=== PATIENT | male | born 1950 | race American Indian/Alaskan Native ===

== ENCOUNTER 2018-01-05 10:46 | Emergency (ER) | payer MEDICARE, OTHER ==
[2018-01-05 10:47] VITALS: BMI 31.1
[2018-01-05 11:06] VITALS: RESP 18
[2018-01-05 11:39] LABS: BASO # 0.1 K/uL (0.0-0.2); BASO % 1.3 % (0.0-2.0); EOS # 0.1 K/uL (0.0-0.7); EOS % 1.2 % (0.0-4.0); HEMOGLOBIN 14.5 g/dL (12.0-18.0); LYMPH # 1.8 K/uL (1.0-4.3); LYMPH % 19.5 % (20.0-40.0); MEAN CELL VOLUME 86.7 fL (80.0-94.0); MEAN CORPUSCULAR HEMOGLOBIN 28.8 pg (27.0-31.0); MEAN CORPUSCULAR HGB CONC 33.2 g/dL (33.0-37.0); MEAN PLATELET VOLUME 7.8 fL (7.2-11.7); MONO # 0.6 K/uL (0.0-0.8); NEUT # 6.4 K/uL (1.8-7.0); RBC 5.04 Mil/uL (4.40-5.90); RED CELL DISTRIBUTION WIDTH 14.8 % (11.5-14.5); WHITE BLOOD COUNT 9.1 K/uL (4.8-10.8)
[2018-01-05 11:56] LABS: ALB/GLOB RATIO 1.2 (1.0-2.1); ALBUMIN 3.8 g/dL (3.5-5.0); ALT/SGPT 30 U/L (21-72); AST/SGOT 28 U/L (17-59); BLOOD UREA NITROGEN 17 mg/dL (9-20); CALCIUM 9.3 mg/dl (8.6-10.4); GFR AFRICAN-AMERICAN > 60; GFR NON-AFRICAN AMERICAN 55
[2018-01-05 12:07] LABS: CK-MB 0.61 ng/mL (0.0-3.38)
[2018-01-05 12:54] LABS: SQUAMOUS EPITHIAL < 1 /hpf (0-5); URINE BILIRUBIN NEGATIVE (NEGATIVE); URINE BLOOD NEGATIVE (NEGATIVE); URINE CLARITY Clear (Clear); URINE COLOR Yellow (YELLOW); URINE GLUCOSE (UA) NORMAL (Normal); URINE LEUKOCYTE ESTERASE NEG Leu/uL (Negative); URINE PROTEIN NEGATIVE (NEGATIVE); URINE UROBILINOGEN NORMAL mg/dL (0.2-1.0)
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
[2018-01-05 13:11] VITALS: BP 136/76; PULSE 69; TEMP 98.4
[2018-01-10 20:21] VITALS: O2SAT 99
== END 2018-01-05 13:12 | disposition home or self-care (01) ==
LOC: C.ER 10:46
DX: D32.0 Benign neoplasm of cerebral meninges (principal)

== ENCOUNTER 2018-02-19 16:02 | Observation (INO) | payer MEDICARE, OTHER ==
[2018-02-19 16:02] VITALS: BMI 31.1
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
[2018-02-19 16:57] LABS: BASO # 0.1 K/uL (0.0-0.2); BASO % 0.8 % (0.0-2.0); EOS # 0.2 K/uL (0.0-0.7); EOS % 1.8 % (0.0-4.0); HEMOGLOBIN 15.6 g/dL (12.0-18.0); LYMPH # 2.3 K/uL (1.0-4.3); LYMPH % 21.2 % (20.0-40.0); MEAN CELL VOLUME 87.6 fL (80.0-94.0); MEAN CORPUSCULAR HEMOGLOBIN 28.3 pg (27.0-31.0); MEAN CORPUSCULAR HGB CONC 32.4 g/dL (33.0-37.0); MEAN PLATELET VOLUME 8.3 fL (7.2-11.7); MONO # 0.9 K/uL (0.0-0.8); MONO % 8.1 % (0.0-10.0); NEUT # 7.4 K/uL (1.8-7.0); NEUT % 68.1 % (50.0-75.0); NRBC % 0.1 % (0.0-2.0); RBC 5.51 Mil/uL (4.40-5.90); RED CELL DISTRIBUTION WIDTH 14.8 % (11.5-14.5); WHITE BLOOD COUNT 10.9 K/uL (4.8-10.8)
[2018-02-19 17:04] LABS: INR 1.1; PROTHROMBIN TIME 12.1 SECONDS (9.7-12.2)
[2018-02-19 17:12] LABS: ALB/GLOB RATIO 1.2 (1.0-2.1); ALBUMIN 4.2 g/dL (3.5-5.0); ALT/SGPT 23 U/L (21-72); AST/SGOT 32 U/L (17-59); BLOOD UREA NITROGEN 28 mg/dL (9-20); CALCIUM 9.3 mg/dl (8.6-10.4); GFR NON-AFRICAN AMERICAN 50
--- NOTE | 2018-02-19 17:41 | RAD ---
Date of service: 02/19/2018 HISTORY: near syncope COMPARISON: Greater than left comparison made with prior chest radiograph 07/10/2014 FINDINGS: LUNGS: Persistent elevation of the right hemidiaphragm with probable linear chronic atelectasis and or scarring changes right lung base. Suspect minor left basilar atelectasis. PLEURA: No significant pleural effusion identified, no pneumothorax apparent. CARDIOVASCULAR: Normal. OSSEOUS STRUCTURES: No significant abnormalities. VISUALIZED UPPER ABDOMEN: Normal. OTHER FINDINGS: None. IMPRESSION: Persistent elevation of the right hemidiaphragm with probable linear chronic atelectasis and or scarring changes right lung base. Suspect minor left basilar atelectasis.
--- NOTE | 2018-02-19 17:56 | CT ---
Date of service: 02/19/2018 PROCEDURE: CT HEAD WITHOUT CONTRAST. HISTORY: Near syncope. COMPARISON: None available. TECHNIQUE: Axial computed tomography images were obtained through the head/brain without intravenous contrast. . Radiation dose: Total exam DLP = 916.76 mGy-cm. This CT exam was performed using one or more of the following dose reduction techniques: Automated exposure control, adjustment of the mA and/or kV according to patient size, and/or use of iterative reconstruction technique. FINDINGS: HEMORRHAGE: No acute parenchymal, subarachnoid or extra-axial the the hemorrhage. BRAIN: Mild chronic periventricular white matter ischemic changes seen extending peripherally into the deep white matter both cerebral hemispheres in addition, there are patchy subcortical white matter ischemic changes scattered about both cerebral hemispheres. There are a few scattered chronic bilateral basal nuclei lacunar type infarcts. Moderate generalized volume loss VENTRICLES: No obstructive hydrocephalus. CALVARIUM: Calvarium intact. PARANASAL SINUSES: Unremarkable as visualized. No significant inflammatory changes. MASTOID AIR CELLS: Unremarkable as visualized. No inflammatory changes. OTHER FINDINGS: None. IMPRESSION: No acute intracranial hemorrhage. Mild chronic periventricular white matter ischemic changes seen extending peripherally into the deep white matter both cerebral hemispheres in addition, there are patchy subcortical white matter ischemic changes scattered about both cerebral hemispheres. There are a few scattered chronic bilateral basal nuclei lacunar type infarcts. Moderate generalized volume loss.
[2018-02-19 18:16] LABS: SQUAMOUS EPITHIAL 1 /hpf (0-5); URINE BACTERIA RARE (<OCC); URINE BILIRUBIN NEGATIVE (NEGATIVE); URINE BLOOD NEGATIVE (NEGATIVE); URINE CLARITY Clear (Clear); URINE COLOR Yellow (YELLOW); URINE GLUCOSE (UA) NORMAL (Normal); URINE LEUKOCYTE ESTERASE NEG Leu/uL (Negative); URINE PROTEIN NEGATIVE (NEGATIVE)
[2018-02-19 22:29] VITALS: PULSE 70
[2018-02-20 02:31] LABS: CK-MB < 0.22 ng/mL (0.0-3.38)
[2018-02-20 04:06] VITALS: BP 126/72; RESP 18; TEMP 98
[2018-02-20] MEDS ORDERED: INSULIN LISPRO 6 UNIT SQ SCH (10:00)
[2018-02-20] MEDS ORDERED: INSULIN GLARGINE HUM REC ANLOG 14 UNIT SQ SCH (10:00)
[2018-02-20] MEDS ORDERED: Home Med 1 UNIT (Valsartan [Diovan] 160 MG) PO SCH (10:00)
[2018-02-20 14:26] VITALS: O2SAT 95
--- NOTE | 2018-02-21 02:01 | CARD ---
APPROVED REPORT Date of service: 02/19/2018 EKG Measurement Heart [id number] <Conclusion> Normal sinus rhythm Nonspecific T wave abnormality Abnormal ECG
--- NOTE | 2018-02-21 07:11 | HP ---
Copied To: Umang Irizarry MD Attending MD: Umang Irizarry MD SUBJECTIVE: The patient is a 67-year-old male. Denies complaints of dizziness and syncope. The patient came to the ER and initially presented with vertigo in the past and diabetes. The patient is awake, alert, and oriented. PHYSICAL EXAMINATION: VITAL SIGNS: Temperature 98, pulse 90. HEENT: Within normal limits. NECK: Supple. CHEST: Symmetrical. HEART: Regular. ABDOMEN: Soft. EXTREMITIES: No edema. IMPRESSION AND PLAN: The patient suffers from vertigo. The patient get bedrest, supportive care. Umang Irizarry MD
== END 2018-02-20 05:32 | disposition left against medical advice (07) ==
LOC: C.ER 16:02 → C.9E 18:18
PROVIDERS: ADMIT Internal Medicine Pulmonary Disease; ATTEND Internal Medicine Pulmonary Disease
DX: R55 Syncope and collapse (principal); I10 Essential (primary) hypertension; I25.10 Atherosclerotic heart disease of native coronary artery without angina pectoris; N40.0 Benign prostatic hyperplasia without lower urinary tract symptoms; Z85.46 Personal history of malignant neoplasm of prostate; E11.9 Type 2 diabetes mellitus without complications
CPT/HCPCS: 36415; 70450; 71045; 80053; 81001; 82948; 84443; 84484; 85025; 85610; 85730; G0378

== ENCOUNTER 2018-07-08 10:49 | Emergency (ER) | payer MEDICARE, OTHER ==
[2018-07-08 10:49] VITALS: BMI 31.1
[2018-07-08] MEDS ORDERED: Sodium Chloride 0.9% 1,000 ML IV ONE (11:56)
[2018-07-08 11:59] LABS: BASO # 0.1 K/uL (0.0-0.2); BASO % 1.2 % (0.0-2.0); EOS # 0.1 K/uL (0.0-0.7); EOS % 1.1 % (0.0-4.0); HEMOGLOBIN 16.1 g/dL (12.0-18.0); LYMPH % 21.4 % (20.0-40.0); MEAN PLATELET VOLUME 8.2 fL (7.2-11.7); MONO # 0.8 K/uL (0.0-0.8); MONO % 8.3 % (0.0-10.0); NEUT # 6.4 K/uL (1.8-7.0); RBC 5.36 Mil/uL (4.40-5.90); RED CELL DISTRIBUTION WIDTH 13.6 % (11.5-14.5); WHITE BLOOD COUNT 9.5 K/uL (4.8-10.8)
[2018-07-08 12:00] LABS: MEAN CELL VOLUME 91.1 fL (80.0-94.0)
[2018-07-08] MEDS ORDERED: Iohexol 240 (50 ml) PO ONE (12:06)
[2018-07-08] MEDS ORDERED: Iohexol 240 (50 ml) ONE (12:16)
[2018-07-08] MEDS ORDERED: Sodium Chloride 0.9% 1,000 ML ONE (12:16)
[2018-07-08 12:23] LABS: ALB/GLOB RATIO 1.4 (1.0-2.1); ALBUMIN 4.7 g/dL (3.5-5.0); ALT/SGPT 22 U/L (21-72); AST/SGOT 26 U/L (17-59); BLOOD UREA NITROGEN 34 mg/dL (9-20); CALCIUM 9.8 mg/dl (8.6-10.4); GFR NON-AFRICAN AMERICAN 35; LIPASE 134 U/L (23-300)
[2018-07-08 12:33] LABS: CK-MB 0.38 ng/mL (0.0-3.38)
--- NOTE | 2018-07-08 13:03 | RAD ---
Chest x-ray single frontal view History: Nausea. Weakness. Comparison: 04/29/2018 Findings: Mild venous congestion. Right hilar prominence. Mild patchy increased markings at the right lung base. Heart size within normal limits. Degenerative changes in the spine. Impression: Mild venous congestion. Right hilar prominence. Mild patchy increased markings at the right lung base.
[2018-07-08] MEDS ORDERED: Iodixanol 320 mg/ml 150 ml Bottle IV ONE (13:52)
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
[2018-07-08 15:15] LABS: SQUAMOUS EPITHIAL < 1 /hpf (0-5); URINE BACTERIA RARE (<OCC); URINE BILIRUBIN NEGATIVE (NEGATIVE); URINE BLOOD NEGATIVE (NEGATIVE); URINE CLARITY Clear (Clear); URINE COLOR Straw (YELLOW); URINE GLUCOSE (UA) NORMAL (Normal); URINE LEUKOCYTE ESTERASE NEG Leu/uL (Negative); URINE PROTEIN NEGATIVE (NEGATIVE); URINE UROBILINOGEN NORMAL mg/dL (0.2-1.0)
--- NOTE | 2018-07-08 15:23 | CT ---
PROCEDURE: CT Abdomen and Pelvis with oral and IV contrast. HISTORY: weakness, nausea, unexplained weight loss COMPARISON: None available TECHNIQUE: Contiguous axial images of the abdomen and pelvis. Oral and IV contrast was administered. Coronal and Sagittal reformats generated and reviewed. Contrast dose: 100 mL Visipaque IV Radiation dose: Total exam DLP = 1126.1 mGy-cm. This CT exam was performed using one or more of the following dose reduction techniques: Automated exposure control, adjustment of the mA and/or kV according to patient size, and/or use of iterative reconstruction technique. FINDINGS: Examination limited by patient motion. LOWER THORAX: 3 mm right middle lobe calcified granuloma. Mild basilar atelectasis. No visible effusion or pneumothorax. Small hiatal hernia/distal esophageal wall thickening. LIVER: Unremarkable. GALLBLADDER AND BILE DUCTS: Unremarkable. PANCREAS: Unremarkable. SPLEEN: Unremarkable. ADRENALS: Bilateral adrenal gland hypertrophy. 7 mm and 6 mm right adrenal gland nodules. KIDNEYS AND URETERS: The kidneys enhance symmetrically. No hydronephrosis or obstructing renal calculus. 9 mm exophytic hypodense lesion, right kidney statistically likely cyst. Indeterminate 11 mm heterogeneous hypodense lesion at the left renal cortex. Bilateral parapelvic cysts. BLADDER: The urinary bladder appears unremarkable. REPRODUCTIVE: Prostate radiation seeds. APPENDIX: The appendix appears within normal limits of caliber. No secondary signs of acute appendicitis. BOWEL: The stomach is nondistended. The bowel loops appear within normal limits of caliber without evidence of intestinal obstruction. PERITONEUM: No significant free fluid. No definite free air. LYMPH NODES: No bulky lymphadenopathy identified. VASCULATURE: No aortic aneurysm. Atherosclerotic calcifications of the aorta. BONES: Degenerative changes of the spine and pelvis. OTHER FINDINGS: 3.2 x 1.4 cm low-density fluid, left pelvis inferior to the sigmoid colon (coronal image 41). IMPRESSION: Examination markedly limited by patient motion. Prostate radiation seeds. Indeterminate 11 mm heterogeneous hypodense lesion at the left renal cortex. Too small to characterize right renal hypodensity, statistically likely cyst. Bilateral parapelvic cysts. Bilateral adrenal gland hypertrophy. 7 mm and 6 mm right adrenal gland nodules. Small focal low-density fluid spanning approximately 3.2 x 1.4 cm in the left anterior pelvis inferior to the sigmoid colon. Additional incidental findings as above.
[2018-07-08 16:43] VITALS: BP 156/83; PULSE 75; RESP 18; TEMP 97.9; O2SAT 100
== END 2018-07-08 16:43 | disposition home or self-care (01) ==
LOC: C.ER 10:49
DX: E86.0 Dehydration (principal); N28.1 Cyst of kidney, acquired; E27.8 Other specified disorders of adrenal gland; R42 Dizziness and giddiness; E11.9 Type 2 diabetes mellitus without complications; E78.00 Pure hypercholesterolemia, unspecified; I10 Essential (primary) hypertension; I25.10 Atherosclerotic heart disease of native coronary artery without angina pectoris; N40.0 Benign prostatic hyperplasia without lower urinary tract symptoms
CPT/HCPCS: 71045; 74177; 80053; 81001; 82550; 82553; 83690; 84484; 85025; 93005; 96360; 99285; J7030; Q9966; Q9967

== ENCOUNTER 2018-07-24 08:38 | Day surgery (SDC) | payer MEDICARE, OTHER ==
[2018-07-23 14:04] VITALS: BMI 25.5
[2018-07-24] MEDS ORDERED: Lactated Ringer's 1,000 ML IV ONE (12:15)
--- NOTE | 2018-07-24 12:16 | CP.SDSHP ---
Same Day Surgery H & P - History Proposed Procedure: EGD Pre-Op Diagnosis: SEE NOTES - Previous Medical/Surgical History Cardiac: Hypertension Endocrine/Metabolic: Diabetes Misc: Other Pain: 4.Moderate Pain - Allergies Allergies: Allergies No Known Allergies Allergy (Verified 07/24/18 11:13) - Physical Exam General Appearance: N Vital Signs: Vital Signs 07/24/18 11:32 Temperature 99.1 F Pulse Rate 65 Respiratory 18 Rate Blood Pressure 134/78 O2 Sat by Pulse 98 Oximetry Mental Status: Alert & Oriented x3 Neuro: WNL Heart: Other Lungs: WNL GI: Other - {Optional Preform as Required} Breast: WNL Integument: WNL : WNL Ortho: Other ENT: WNL - Impression Pt. Evaluated Today:Candidate for Anesthesia & Procedure: Yes - Date & Time Time: 12:16 Short Stay Discharge - Short Stay Discharge Admitting Diagnosis/Reason for Visit: ABNORMAL WEIGHT LOSS Disposition: HOME/ ROUTINE
[2018-07-24] MEDS ORDERED: Propofol 10 mg/ml Inj (20 ML) ONE (12:19)
[2018-07-24] MEDS ORDERED: Midazolam 2 MG/2 ML VIAL ONE (12:19)
[2018-07-24] MEDS ORDERED: Lactated Ringer's 500 ML IV SCH (12:30)
[2018-07-24] MEDS ORDERED: Lidocaine Hydrochloride 5 ML INJ ONE (12:31)
[2018-07-24] MEDS ORDERED: Belladonna-Phenobarbital PO STA (12:48)
[2018-07-24 12:58] VITALS: TEMP 98.9
[2018-07-24 13:54] VITALS: BP 129/72; PULSE 61; RESP 18; O2SAT 99
== END 2018-07-24 14:51 | disposition home or self-care (01) ==
LOC: C.ENDO 08:38
PROVIDERS: ATTEND Specialist
DX: K29.50 Unspecified chronic gastritis without bleeding (principal); B96.81 Helicobacter pylori [H. pylori] as the cause of diseases classified elsewhere; E11.9 Type 2 diabetes mellitus without complications; I10 Essential (primary) hypertension; Z92.3 Personal history of irradiation; Z98.890 Other specified postprocedural states; Z79.899 Other long term (current) drug therapy
CPT/HCPCS: 43239; 82948; 88305; 88313; 88342; J2250; J2704; J7120

== ENCOUNTER 2018-08-05 08:14 | Day surgery (SDC) | payer MEDICARE, OTHER ==
[2018-07-23 14:04] VITALS: BMI 25.5
[2018-08-05] MEDS ORDERED: Lactated Ringer's 500 ML IV ONE ×2 (11:14)
--- NOTE | 2018-08-05 11:14 | CP.SDSHP ---
Same Day Surgery H & P - History Proposed Procedure: COLONSCOPY Pre-Op Diagnosis: SEE NOTES - Previous Medical/Surgical History Cardiac: Hypertension Endocrine/Metabolic: Diabetes Misc: Other Pain: 4.Moderate Pain - Allergies Allergies: Allergies No Known Allergies Allergy (Verified 08/05/18 10:18) - Physical Exam General Appearance: N Vital Signs: Vital Signs 08/05/18 10:00 Temperature 98.7 F Pulse Rate 80 Respiratory 20 Rate Blood Pressure 120/77 O2 Sat by Pulse 98 Oximetry Mental Status: Alert & Oriented x3 Neuro: WNL Heart: Other Lungs: WNL GI: Other - {Optional Preform as Required} Breast: WNL Abdomen: Other Rectal: Other Integument: WNL : WNL Ortho: Other ENT: WNL - Impression Pt. Evaluated Today:Candidate for Anesthesia & Procedure: Yes - Date & Time Time: 11:14 Short Stay Discharge - Short Stay Discharge Admitting Diagnosis/Reason for Visit: BODY WEIGHT LOSS Disposition: HOME/ ROUTINE
[2018-08-05] MEDS ORDERED: Belladonna-Phenobarbital PO STA (11:15)
[2018-08-05] MEDS ORDERED: Propofol 10 mg/ml Inj (20 ML) ONE (11:17)
[2018-08-05] MEDS ORDERED: Lidocaine Hydrochloride 5 ML INJ ONE (11:17)
[2018-08-05 11:19] VITALS: O2SAT 100
[2018-08-05 11:47] VITALS: TEMP 99.1
[2018-08-05 13:37] VITALS: BP 131/68; PULSE 69; RESP 17
== END 2018-08-05 12:30 | disposition home or self-care (01) ==
LOC: C.ENDO 08:14
PROVIDERS: ATTEND Specialist
DX: R63.4 Abnormal weight loss (principal); K64.8 Other hemorrhoids; K58.9 Irritable bowel syndrome, unspecified
CPT/HCPCS: 45378; J2704; J7120

== ENCOUNTER 2018-09-18 15:37 | Emergency (ER) | payer MEDICARE, OTHER ==
[2018-09-18 15:38] VITALS: BMI 25.5
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
[2018-09-18 16:29] LABS: BASO # 0.1 K/uL (0.0-0.2); EOS # 0.1 K/uL (0.0-0.7); EOS % 0.7 % (0.0-4.0); HEMOGLOBIN 14.4 g/dL (12.0-18.0); LYMPH # 1.8 K/uL (1.0-4.3); LYMPH % 19.5 % (20.0-40.0); MEAN CELL VOLUME 89.5 fL (80.0-94.0); MEAN CORPUSCULAR HEMOGLOBIN 29.3 pg (27.0-31.0); MEAN CORPUSCULAR HGB CONC 32.7 g/dL (33.0-37.0); MEAN PLATELET VOLUME 7.6 fL (7.2-11.7); MONO % 10.7 % (0.0-10.0); NEUT # 6.4 K/uL (1.8-7.0); NEUT % 68.1 % (50.0-75.0); RBC 4.92 Mil/uL (4.40-5.90); WHITE BLOOD COUNT 9.4 K/uL (4.8-10.8)
[2018-09-18 16:37] LABS: INR 1.2; PROTHROMBIN TIME 13.4 SECONDS (9.7-12.2)
[2018-09-18 16:42] LABS: ALB/GLOB RATIO 1.5 (1.0-2.1); ALBUMIN 4.3 g/dL (3.5-5.0); ALT/SGPT 29 U/L (21-72); AST/SGOT 32 U/L (17-59); BLOOD UREA NITROGEN 23 mg/dL (9-20); CALCIUM 9.9 mg/dl (8.6-10.4); GFR NON-AFRICAN AMERICAN 43
[2018-09-18 17:44] LABS: SQUAMOUS EPITHIAL < 1 /hpf (0-5); URINE BACTERIA RARE (<OCC); URINE BILIRUBIN NEGATIVE (NEGATIVE); URINE BLOOD NEGATIVE (NEGATIVE); URINE CLARITY Clear (Clear); URINE COLOR Yellow (YELLOW); URINE GLUCOSE (UA) NORMAL (Normal); URINE LEUKOCYTE ESTERASE NEG Leu/uL (Negative); URINE PROTEIN NEGATIVE (NEGATIVE); URINE UROBILINOGEN NORMAL mg/dL (0.2-1.0)
--- NOTE | 2018-09-18 17:46 | CT ---
Date of service: 09/18/2018 PROCEDURE: CT HEAD WITHOUT CONTRAST. HISTORY: Headache/lightheaded/dizzy COMPARISON: 02/19/2018. TECHNIQUE: Axial computed tomography images were obtained through the head/brain without intravenous contrast. Radiation dose: Total exam DLP = 1106.05 mGy-cm. This CT exam was performed using one or more of the following dose reduction techniques: Automated exposure control, adjustment of the mA and/or kV according to patient size, and/or use of iterative reconstruction technique. FINDINGS: HEMORRHAGE: No intracranial hemorrhage. BRAIN: There are mild chronic microangiopathic changes. There is redemonstration of a 2.5 x 1.0 x 4.0 cm left parasagittal frontal convexity meningioma with mild mass effect on the superior frontal lobe without vasogenic edema or midline shift. There is no abnormal extra-axial fluid collection. There is no territorial infarction. The midline sagittal structures are normal. VENTRICLES: The ventricles are normal in size, onfiguration. CALVARIUM: There are erosive changes and scalloping in the inner table of the left superior frontal calvarium related to known meningioma. There is no calvarial fracture or extracranial soft tissue swelling. PARANASAL SINUSES: Predominantly clear. MASTOID AIR CELLS: Predominantly clear. OTHER FINDINGS: None. IMPRESSION: No acute intracranial abnormality. Mild chronic microangiopathic changes and mild age-related global parenchymal volume loss. Little interval change in known left parasagittal frontal convexity meningioma with mild mass effect on the superior frontal lobe without vasogenic edema or midline shift. Redemonstration of scalloping of the inner table of the left frontal calvarium.
[2018-09-18 18:03] VITALS: BP 136/80; PULSE 68; RESP 18; TEMP 98.4
[2018-09-18 18:18] VITALS: O2SAT 99
--- NOTE | 2018-09-21 20:09 | CARD ---
APPROVED REPORT Date of service: 09/18/2018 EKG Measurement Heart [id number] <Conclusion> Normal sinus rhythm Nonspecific T wave abnormality Abnormal ECG
== END 2018-09-18 18:04 | disposition home or self-care (01) ==
LOC: C.ER 15:37
DX: E11.649 Type 2 diabetes mellitus with hypoglycemia without coma (principal); R42 Dizziness and giddiness; R55 Syncope and collapse; R51 Headache
CPT/HCPCS: 70450; 80053; 81001; 82948; 84484; 85025; 85610; 85730; 93005; 96374; 99285; J2405

== ENCOUNTER 2018-09-21 13:59 | Observation (INO) | payer MEDICARE, OTHER ==
[2018-09-21 14:00] VITALS: BMI 25.5
[2018-09-21] MEDS ORDERED: Sodium Chloride 0.9% 500 ML IV STA (14:35)
[2018-09-21 14:53] LABS: BASO # 0.1 K/uL (0.0-0.2); BASO % 1.3 % (0.0-2.0); EOS # 0.1 K/uL (0.0-0.7); EOS % 0.8 % (0.0-4.0); HEMOGLOBIN 14.5 g/dL (12.0-18.0); LYMPH # 1.7 K/uL (1.0-4.3); LYMPH % 18.3 % (20.0-40.0); MEAN CORPUSCULAR HEMOGLOBIN 29.9 pg (27.0-31.0); MEAN CORPUSCULAR HGB CONC 32.6 g/dL (33.0-37.0); MEAN PLATELET VOLUME 8.1 fL (7.2-11.7); MONO # 0.7 K/uL (0.0-0.8); NEUT # 6.6 K/uL (1.8-7.0); NEUT % 71.6 % (50.0-75.0); NRBC % 0.1 % (0.0-2.0); RBC 4.85 Mil/uL (4.40-5.90); RED CELL DISTRIBUTION WIDTH 13.9 % (11.5-14.5); WHITE BLOOD COUNT 9.2 K/uL (4.8-10.8)
[2018-09-21 14:59] LABS: VENOUS BLOOD GAS BASE EXCESS -2.9 mmol/L (0.0-2.0); VENOUS BLOOD GAS PCO2 33 mmHg (40-60); VENOUS BLOOD GAS PO2 49 mm/Hg (30-55); VENOUS BLOOD PH 7.41 (7.32-7.43)
[2018-09-21 15:02] LABS: MEAN CELL VOLUME 91.6 fL (80.0-94.0)
--- NOTE | 2018-09-21 15:04 | RAD ---
Date of service: 09/21/2018 PROCEDURE: CHEST RADIOGRAPH, 1 VIEW HISTORY: Diabetic, hypoglycemia COMPARISON: 07/08/2018 FINDINGS: LUNGS: Clear. PLEURA: No pneumothorax or pleural fluid seen. CARDIOVASCULAR: No aortic atherosclerotic calcification present. Normal. OSSEOUS STRUCTURES: No significant abnormalities. VISUALIZED UPPER ABDOMEN: Normal. OTHER FINDINGS: None. IMPRESSION: No active disease.
[2018-09-21 15:06] LABS: INR 1.2; PROTHROMBIN TIME 13.2 SECONDS (9.7-12.2)
[2018-09-21 15:15] LABS: ALB/GLOB RATIO 1.5 (1.0-2.1); ALBUMIN 4.3 g/dL (3.5-5.0); ALT/SGPT 44 U/L (21-72); AST/SGOT 33 U/L (17-59); BLOOD UREA NITROGEN 26 mg/dL (9-20); CALCIUM 9.6 mg/dl (8.6-10.4); GFR NON-AFRICAN AMERICAN 43
[2018-09-21 15:51] LABS: SQUAMOUS EPITHIAL < 1 /hpf (0-5); URINE BILIRUBIN NEGATIVE (NEGATIVE); URINE BLOOD NEGATIVE (NEGATIVE); URINE CLARITY Clear (Clear); URINE COLOR Yellow (YELLOW); URINE GLUCOSE (UA) NORMAL (Normal); URINE HYALINE CAST 0-2 /lpf (0-2); URINE LEUKOCYTE ESTERASE NEG Leu/uL (Negative); URINE PROTEIN NEGATIVE (NEGATIVE); URINE UROBILINOGEN NORMAL mg/dL (0.2-1.0)
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
[2018-09-22 00:45] VITALS: RESP 20
[2018-09-22 07:44] VITALS: BP 139/80; TEMP 98.1; O2SAT 96
[2018-09-22] MEDS: (Novolog) Insulin Aspart, Recombinant 100 u/ml 10 ml vial SC SCH ×2 (07:48→11:50)
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
--- NOTE | 2018-09-22 09:24 | CARD ---
APPROVED REPORT Date of service: 09/21/2018 EKG Measurement Heart [id number] <Conclusion> Poor data quality, interpretation may be adversely affected Normal sinus rhythm Normal ECG
[2018-09-22 11:31] LABS: BASO # 0.1 K/uL (0.0-0.2); BASO % 1.1 % (0.0-2.0); EOS # 0.1 K/uL (0.0-0.7); EOS % 1.2 % (0.0-4.0); HEMOGLOBIN 14.4 g/dL (12.0-18.0); LYMPH # 1.8 K/uL (1.0-4.3); LYMPH % 24.9 % (20.0-40.0); MEAN CELL VOLUME 91.6 fL (80.0-94.0); MEAN CORPUSCULAR HEMOGLOBIN 30.5 pg (27.0-31.0); MEAN CORPUSCULAR HGB CONC 33.3 g/dL (33.0-37.0); MEAN PLATELET VOLUME 7.4 fL (7.2-11.7); MONO # 0.6 K/uL (0.0-0.8); MONO % 8.9 % (0.0-10.0); NEUT # 4.7 K/uL (1.8-7.0); NEUT % 63.9 % (50.0-75.0); NRBC % 0.1 % (0.0-2.0); RBC 4.73 Mil/uL (4.40-5.90); RED CELL DISTRIBUTION WIDTH 13.9 % (11.5-14.5); WHITE BLOOD COUNT 7.3 K/uL (4.8-10.8)
[2018-09-22 12:04] LABS: ALB/GLOB RATIO 1.5 (1.0-2.1); ALBUMIN 4.1 g/dL (3.5-5.0); ALT/SGPT 55 U/L (21-72); AST/SGOT 38 U/L (17-59); BLOOD UREA NITROGEN 19 mg/dL (9-20); CALCIUM 9.7 mg/dl (8.6-10.4); GFR NON-AFRICAN AMERICAN 55
[2018-09-22 14:44] VITALS: PULSE 67
== END 2018-09-22 15:00 | disposition home or self-care (01) ==
LOC: C.ER 13:59 → C.9E 16:25 → C.6T 20:53
PROVIDERS: ADMIT Internal Medicine Pulmonary Disease; ATTEND Internal Medicine Pulmonary Disease
DX: R55 Syncope and collapse (principal); E11.649 Type 2 diabetes mellitus with hypoglycemia without coma; I25.10 Atherosclerotic heart disease of native coronary artery without angina pectoris; I10 Essential (primary) hypertension; E78.00 Pure hypercholesterolemia, unspecified; N40.0 Benign prostatic hyperplasia without lower urinary tract symptoms
CPT/HCPCS: 36415; 71045; 80053; 81001; 82550; 82553; 82803; 82948; 83036; 83735; 84100; 84484; 85025; 85610; 85730; 87040; 87086; 93005; 99285; G0378; J1644; J7040; J7070

== ENCOUNTER 2018-10-25 04:36 | Emergency (ER) | payer MEDICARE, OTHER ==
[2018-10-25 04:37] VITALS: BMI 25.5
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
[2018-10-25] MEDS ORDERED: Sodium Chloride 0.9% 1,000 ML IV STA (05:47)
[2018-10-25 06:06] LABS: BASO # 0.1 K/uL (0.0-0.2); BASO % 0.8 % (0.0-2.0); EOS # 0.1 K/uL (0.0-0.7); EOS % 1.4 % (0.0-4.0); HEMOGLOBIN 15.3 g/dL (12.0-18.0); LYMPH # 2.1 K/uL (1.0-4.3); LYMPH % 24.1 % (20.0-40.0); MEAN CELL VOLUME 91.8 fL (80.0-94.0); MEAN CORPUSCULAR HEMOGLOBIN 30.1 pg (27.0-31.0); MEAN CORPUSCULAR HGB CONC 32.8 g/dL (33.0-37.0); MEAN PLATELET VOLUME 7.7 fL (7.2-11.7); MONO # 0.7 K/uL (0.0-0.8); MONO % 7.9 % (0.0-10.0); NEUT # 5.7 K/uL (1.8-7.0); NEUT % 65.8 % (50.0-75.0); RBC 5.08 Mil/uL (4.40-5.90); RED CELL DISTRIBUTION WIDTH 13.4 % (11.5-14.5); WHITE BLOOD COUNT 8.7 K/uL (4.8-10.8)
[2018-10-25 06:13] LABS: ALB/GLOB RATIO 1.4 (1.0-2.1); ALBUMIN 4.4 g/dL (3.5-5.0); ALT/SGPT 37 U/L (21-72); AST/SGOT 23 U/L (17-59); BLOOD UREA NITROGEN 28 mg/dL (9-20); GFR NON-AFRICAN AMERICAN 40
[2018-10-25 07:15] LABS: SQUAMOUS EPITHIAL 1 /hpf (0-5); URINE BILIRUBIN NEGATIVE (NEGATIVE); URINE BLOOD NEGATIVE (NEGATIVE); URINE CLARITY Hazy (Clear); URINE COLOR Yellow (YELLOW); URINE GLUCOSE (UA) NORMAL (Normal); URINE LEUKOCYTE ESTERASE NEG Leu/uL (Negative); URINE PROTEIN NEGATIVE (NEGATIVE); URINE UROBILINOGEN NORMAL mg/dL (0.2-1.0)
[2018-10-25 07:42] VITALS: BP 134/69; PULSE 70; RESP 18; TEMP 98; O2SAT 99
--- NOTE | 2018-10-25 17:37 | RAD ---
Date of service: 10/25/2018 HISTORY: constipation COMPARISON: None available. TECHNIQUE: 1 view obtained. FINDINGS: BOWEL: Normal. No obstruction. No free air. BONES: Normal. OTHER FINDINGS: None. IMPRESSION: No active disease.
--- NOTE | 2018-10-28 13:15 | CARD ---
APPROVED REPORT Date of service: 10/25/2018 EKG Measurement Heart [id number] <Conclusion> Normal sinus rhythm Normal Electrocardiogram
== END 2018-10-25 07:42 | disposition home or self-care (01) ==
LOC: C.ER 04:36
DX: R42 Dizziness and giddiness (principal); K59.00 Constipation, unspecified; E11.9 Type 2 diabetes mellitus without complications; E78.00 Pure hypercholesterolemia, unspecified; I10 Essential (primary) hypertension; I25.10 Atherosclerotic heart disease of native coronary artery without angina pectoris
CPT/HCPCS: 74019; 80053; 81001; 82948; 84484; 85025; 93005; 99285; J7040

== ENCOUNTER 2018-11-17 12:47 | Outpatient (CLI) | payer MEDICARE, OTHER | END 2018-11-17 12:48 | disposition home or self-care (01) | LOC: C.MRIC 12:47 ==